=== PATIENT | male | born 1995 | race Caucasian/White ===

== ENCOUNTER 2018-05-12 22:57 | Emergency (ER) | payer OTHER ==
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
== END 2018-05-12 23:30 | disposition home or self-care (01) ==
LOC: FB.ED 22:57
DX: S51.012A Laceration without foreign body of left elbow, initial encounter (principal); V28.0XXA Motorcycle driver injured in noncollision transport accident in nontraffic accident, initial encounter
CPT/HCPCS: 12001; 12002; 99282